=== PATIENT | female | born 1995 | race Caucasian/White ===

== ENCOUNTER 2016-06-22 13:59 | Emergency (ER) | payer OTHER ==
[~2016-06-22] VITALS: Ht 149.9 cm; Wt 41.7 kg
[2016-06-22 14:06] VITALS: BP 151/105
--- NOTE | 2016-06-22 15:15 | NUR ---
PATIENT PRESENTS TO ED WITH C/O INSOMNIA, DECREASED APPETITE, INCREASED TENSION X1 WK HX---HYPERLIPIDEMIA, POLYCYSTIC OVARIAN SYNDROME, JESSI SILVER SYNDROME RX--- CONTROL, TAZARAC, FISH OIL , MULTIVITAMIN, BENADRYL; DENIES N/V/D; SKIN IS PINK/WARM/DRY; AAOX4 WITH EVEN AND STEADY GAIT; LUNGS CLEAR BL; HR EVEN AND REGULAR; PT DENIES ANY FEVER, CP, SOB, OR COUGH AT THIS TIME; PATIENT STATES PAIN OF 0/10 AT THIS TIME; VSS; PATIENT POSITIONED FOR COMFORT; HOB ELEVATED; BEDRAILS UP X2; BED DOWN. ER MD MADE AWARE OF PT STATUS.
--- NOTE | 2016-06-22 15:51 | NUR ---
DR REDDING ASSESSING AAO PT AT BEDSIDE
[2016-06-22 16:03] VITALS: BP 150/97
--- NOTE | 2016-06-22 16:03 | NUR ---
Patient discharged with v/s stable. Written and verbal after care instructions given and explained. Patient alert, oriented and verbalized understanding of instructions. Ambulatory with steady gait. All questions addressed prior to discharge. ID band removed. Patient advised to follow up with PMD. Rx of DEE DEE given. Patient educated on indication of medication including possible reaction and side effects. Opportunity to ask questions provided and answered.
== END 2016-06-22 16:03 | disposition home or self-care (01) ==
LOC: MED 13:59
DX: G47.00 Insomnia, unspecified (principal); R03.0 Elevated blood-pressure reading, without diagnosis of hypertension; E78.5 Hyperlipidemia, unspecified